=== PATIENT | female | born 1995 | race Two or more races ===

== ENCOUNTER 2019-03-25 17:00 | Emergency (ER) | payer SELFPAY ==
[~2019-03-25] VITALS: Ht 167.6 cm; Wt 115.0 kg
[2019-03-25] MEDS ORDERED: CYCLOBENZAPRINE HCL 10 MG TABLET PO ONE (17:45)
[2019-03-25 19:40] VITALS: BP 120/82
== END 2019-03-25 20:03 | disposition home or self-care (01) ==
LOC: EMS 17:05
DX: S29.9XXA Unspecified injury of thorax, initial encounter (principal); V49.9XXA Car occupant (driver) (passenger) injured in unspecified traffic accident, initial encounter; W22.19XA Striking against or struck by other automobile airbag, initial encounter; Y93.89 Activity, other specified; Y92.488 Other paved roadways as the place of occurrence of the external cause; Y99.8 Other external cause status